=== PATIENT | female | born 1955 ===

== ENCOUNTER 2020-03-27 13:48 | Outpatient (REF) | payer BC, SELFPAY ==
[2020-03-27 16:34] LABS: MANUAL DIFF FLAG NO
[2020-03-27 16:38] LABS: Basophils Percent Auto 0.3 % (0-2); Eosinophils Absolute Auto 0.2 X10*3/uL (0.0-0.4); Hematocrit 39.7 % (37-47); Hemoglobin 12.8 g/dl (12.0-16.0); Imm Gran Abs Auto 0.03 X10*3/uL (0.00-0.03); Imm Gran Pct Auto 0.4 % (0.0-0.4); Lymphocytes Absolute Auto 2.3 X10*3/uL (1.2-4.9); Lymphocytes Percent Auto 28.8 % (20-40); Mean Corpuscular HGB Conc 32.2 g/dl (31.0-35.0); Mean Corpuscular Hemoglobin 29.6 pg (27.0-33.0); Mean Corpuscular Volume 91.9 fL (80-98); Mean Platelet Volume 9.7 fL (9.4-12.3); Monocytes Absolute Auto 0.7 X10*3/uL (0.1-1.2); Monocytes Percent Auto 8.9 % (2-11); Neutrophils Absolute Auto 4.7 X10*3/uL (2.0-8.3); Neutrophils Percent Auto 59.6 % (45-73); Platelet Count 296 X10*3/uL (160-400); Red Blood Count 4.32 X10*6/uL (4.20-5.50); Red Cell Distribution Width 12.8 % (11.0-16.0); White Blood Count 7.9 X10*3/uL (4.8-10.8)
[2020-03-27 16:55] LABS: Alanine Aminotransferase 40 U/L (0-31); Albumin Level 4.4 g/dL (3.5-5.0); Alkaline Phosphatase 95 U/L (39-117); Anion Gap 10 (12-20); Aspartate Amino Transferase 19 U/L (5-31); Bilirubin Total 0.6 mg/dL (0.0-1.0); Blood Urea Nitrogen 19 mg/dL (9-16); Calcium 8.8 mg/dL (8.4-10.2); Carbon Dioxide 32 mmol/L (22-29); Chloride 101 mmol/L (96-108); Cholesterol 210 mg/dL; Estimated Glomerular Filt Rate > 60; Glucose Fasting 104 mg/dL (60-99); HDL Cholesterol 48 mg/dL; LDL Cholesterol Calculated 125 mg/dl; Potassium 4.4 mmol/l (3.3-5.1); Sodium 139 mmol/L (135-145); Total Protein 7.3 g/dL (6.5-8.0); Triglycerides 186 mg/dL
[2020-03-27 17:16] LABS: Thyroid Stimulating Hormone 0.99 uIU/mL (0.32-4.0)
== END 2020-03-27 13:49 | disposition home or self-care (01) ==
LOC: HO.HMGCLDS 13:48
PROVIDERS: PCP Internal Medicine; Visit Provider Internal Medicine
DX: Z00.00 Encounter for general adult medical examination without abnormal findings (principal)
CPT/HCPCS: 36415; 80053; 80061; 84443; 85025

== ENCOUNTER 2021-04-15 13:24 | Outpatient (REF) | payer BC, SELFPAY ==
[2021-04-15 16:48] LABS: Hematocrit 38.4 % (37.0-47.0); Hemoglobin 12.3 g/dl (12.0-16.0); Mean Corpuscular Hemoglobin 29.3 pg (27.0-33.0); Mean Corpuscular Volume 91.4 fL (80.0-98.0); Mean Platelet Volume 10.1 fL (9.4-12.3); Platelet Count 286 X10*3/uL (160-400); Red Cell Distribution Width 12.5 % (11.0-16.0); White Blood Count 7.2 X10*3/uL (4.8-10.8)
[2021-04-15 17:03] LABS: Appearance Urine CLEAR; Color Urine YELLOW; Glucose Urine UA NEG (NEG); Leukocyte Esterase Urine NEG (NEG); Nitrite Urine NEG (NEG); Specific Gravity - Urine <= 1.005 (1.005-1.025); Urine Blood NEG (NEG); Urine Ketones NEG (NEG); Urine Protein NEG (NEG-TRACE)
[2021-04-15 17:12] LABS: Alanine Aminotransferase 20 U/L (0-31); Albumin Level 4.1 g/dL (3.5-5.0); Alkaline Phosphatase 92 U/L (39-117); Anion Gap 10 (12-20); Aspartate Amino Transferase 14 U/L (5-31); Bilirubin Total 0.4 mg/dL (0.0-1.0); Blood Urea Nitrogen 14 mg/dL (9-16); Calcium 9.7 mg/dL (8.4-10.2); Carbon Dioxide 30 mmol/L (22-29); Chloride 105 mmol/L (96-108); Cholesterol 196 mg/dL; Estimated Glomerular Filt Rate > 60; Glucose Fasting 98 mg/dL (60-99); HDL Cholesterol 44 mg/dL; LDL Cholesterol Calculated 93 mg/dl; Potassium 4.2 mmol/L (3.3-5.1); Sodium 141 mmol/L (135-145); Total Protein 7.2 g/dL (6.5-8.0); Triglycerides 297 mg/dL
[2021-04-15 17:25] LABS: TSH reflex Free T4 1.12 uIU/mL (0.32-4.0)
== END 2021-04-15 13:25 | disposition home or self-care (01) ==
LOC: HO.HMGCLDS 13:24
PROVIDERS: Absent Provider Nurse Practitioner Family; PCP Internal Medicine; Visit Provider Internal Medicine
DX: Z00.00 Encounter for general adult medical examination without abnormal findings (principal); R31.9 Hematuria, unspecified; M54.16 Radiculopathy, lumbar region
CPT/HCPCS: 36415; 80053; 80061; 81003; 84443; 85027

== ENCOUNTER 2022-01-17 14:31 | Outpatient (REF) | payer BC, SELFPAY ==
--- NOTE | ~2022-01-17 | XR_ITS ---
EXAMINATION: XR SHOULDER, LEFT CLINICAL INFORMATION: Pain in left shoulder COMPARISON: None TECHNIQUE: Three views of the left shoulder. FINDINGS: The bones and soft tissues are normal. No fracture. Glenohumeral and acromioclavicular alignment is anatomic with normal joint space. No abnormal soft tissue calcifications. XR/XR shoulder LT min 2V IMPRESSION: Normal left shoulder.
== END 2022-01-17 14:32 | disposition home or self-care (01) ==
LOC: HO.HMGCX 14:31
PROVIDERS: PCP Internal Medicine
DX: M25.512 Pain in left shoulder (principal)
CPT/HCPCS: 73030

== ENCOUNTER 2022-04-29 08:15 | Outpatient (REF) | payer BC, SELFPAY ==
--- NOTE | ~2022-04-29 | XR_ITS ---
EXAMINATION: XR SHOULDER, LEFT CLINICAL INFORMATION: Pain. COMPARISON: None. TECHNIQUE: AP external rotation, Grashey, scapular Y, and axillary views of the left shoulder. FINDINGS: There is loss of glenohumeral and AC joint space is normal. No visible acute fracture, dislocation or subluxation seen. There is an inferior left acromial enthesophyte. The soft tissues are normal. XR/XR shoulder LT min 2V IMPRESSION: Inferior left acromial enthesophyte. No visible acute fracture, dislocation or subluxation seen.
== END 2022-04-29 08:16 | disposition home or self-care (01) ==
LOC: HO.HOSX 08:15
PROVIDERS: Visit Provider Physician Assistant
DX: M75.102 Unspecified rotator cuff tear or rupture of left shoulder, not specified as traumatic (principal)
CPT/HCPCS: 73030

== ENCOUNTER 2022-11-06 13:38 | Outpatient (AMB) | payer BC, SELFPAY ==
[2022-11-06 13:40] VITALS: BP 126/78; PULSE 89; O2SAT 96; BMI 40.8
--- NOTE | 2022-11-06 13:40 | MHC.PC.OV ---
Vital Signs 11/06/22 13:40 Height 5 ft 2 in Weight 223 lb 4 oz BMI 40.8 BP 126/78 Blood Pressure Location Lt brachial Position Sitting Pulse 89 Pulse Source Pulse Oximeter Pulse Oximetry (%) 96 Oxygen Delivery Method Room Air Intake Visit Reasons: Back pain Allergies clarithromycin [From Biaxin] Allergy (Unknown, Verified 11/06/22 13:40) throat closing Sulfa (Sulfonamide Antibiotics) Allergy (Unknown, Verified 11/06/22 13:40) throat closing and rash sulfamethoxazole [From Bactrim] Allergy (Unknown, Verified 11/06/22 13:40) throat closing trimethoprim [From Bactrim] Allergy (Unknown, Verified 11/06/22 13:40) throat closing polyethylene glycol Allergy (Verified 11/06/22 13:40) blockes sinuses and breathing problem covid vaccine Allergy (Uncoded 02/11/22 11:48) Anaphylaxis Medication List - Last Reconciled 11/06/22 by Aicha Romero MD albuterol sulfate 1.25 mg (3 mL) inhalation QID PRN clonazepam 0.5 mg PO DAILY meloxicam 15 mg (2 x 7.5 mg) PO DAILY PRN zolpidem 10 mg PO BEDTIME PRN Tobacco use date assessed: 11/06/22 Fall risk assessment: No Falls in past year Last assessed Fall Risk: 11/06/22 Dental Screening Dental Screen Date: 11/06/22 Did you have a dental visit in the last 12 months?: Yes Did you have a dental problem in the last 6 months where you did not have access to dental care?: No Was dental information given to patient?: No HPI HPI Comments History of Present Illness Details Patient presents for f/u chronic lower back pain and has been taking meloxicam as needed. Patient has been gaining weight and is planning to try some weight loss. [facility] Medical History (Updated 11/06/22 @ 14:37 by Aicha Romero MD) Annual physical exam Anxiety Insomnia Jaw pain Left shoulder pain Lumbar radiculopathy Mammogram declined Pain of left shoulder joint on movement Surgical History History of appendectomy History of hip replacement Family History Father No problems noted. Mother Alcohol abuse Brother Healthy male adult Brother Healthy male adult Other Substance use disorder Social History Housing: House Alcohol intake: never Patient Tobacco Use Status: Former Tobacco user Quit Date: 2003 Tobacco use type: Cigarette Years Smoked: 5 years e-Cigarette/Vaping Use: Never Used service: Yes Current occupational status: retired Cognitive needs: No Hearing needs: No Vision needs: Yes Questionnaire Thrive Questionnaire Date Thrive assessed: 02/11/22 AUDIT C Alcohol Use Questionnaire (AUDIT-C) 1. How often do you have a drink containing alcohol?: Never 3. How often do you have six or more drinks on one occasion?: Never Total Score: 0 Score Reviewed/Action Taken: Yes DREW-7 AMB Questionnaire DREW-7 Date DREW - 7 assessed: 02/11/22 Source: Developed by Drs. Matthew Harmon, Shelby Kulkarni, Kennedy Rodriguez and colleagues, with an educational blossom from [employer]. Review of Systems Const All systems reviewed & are unremarkable except as noted in HPI and below Reports no additional complaints Eyes Reports no additional complaints ENT Reports no additional complaints Card Reports no additional complaints Resp Reports no additional complaints GI Reports no additional complaints Reports no additional complaints Physical exam (Primary Care) Vital Signs: Last Vital Signs Pulse 89 11/06/22 13:40 BP 126/78 11/06/22 13:40 Pulse Ox 96 11/06/22 13:40 Oxygen Delivery Method Room Air 11/06/22 13:40 BMI result Body Mass Index 40.8 Tobacco/Smoking Status: Tobacco use Status Tobacco use date assessed 11/06/22 11/06/22 13:44 Patient Tobacco Use Status Former Tobacco user 11/06/22 13:44 Tobacco use type Cigarette 11/06/22 13:44 e-Cigarette/Vaping Use Never Used 11/06/22 13:44 Thrive Assessment: Date of Thrive Assessment Date Thrive assessed 02/11/22 11/06/22 13:44 HENMT Mouth: Normal oral and palatal mucosa present Eyes General: appearance normal, both eyes and all related structures Neck Neck: Yes supple Resp Auscultation: clear to auscultation bilaterally Cardio Rhythm: regular rhythm Heart sounds: S1 normal heart sound present and S2 normal heart sound present GI Inspection: Yes normal to inspection Assessment and Plan Assessment & Plan (1) Annual physical exam: Code(s): Z00.00 - Encounter for general adult medical examination without abnormal findings (2) Hyperglycemia: Code(s): R73.9 - Hyperglycemia, unspecified Plan: check labs , ADA diet ,weight loss discussed (3) Mammogram declined: Comment: 03/04 Code(s): Z53.20 - Procedure and treatment not carried out because of patient's decision for unspecified reasons (4) Colonoscopy refused: Comment: 03/04 Code(s): Z53.20 - Procedure and treatment not carried out because of patient's decision for unspecified reasons (5) Hyperlipidemia: Comment: Patient refused to take medications Code(s): E78.5 - Hyperlipidemia, unspecified (6) Over weight: Code(s): E66.3 - Overweight Plan: weight loss discussed (7) Lumbar radiculopathy: Comment: managed by hydrotherapy and physical therapy, on Meloxicam prn Code(s): M54.16 - Radiculopathy, lumbar region Plan: cont Meloxicam prn Orders: Orders Comprehensive Met. Panel Today R73.9 - Hyperglycemia, unspecified, Z00.00 - Encounter for general adult medical examination without abnormal findings Complete Blood Count Auto Diff Today R73.9 - Hyperglycemia, unspecified, Z00.00 - Encounter for general adult medical examination without abnormal findings Lipid Panel Today R73.9 - Hyperglycemia, unspecified, Z00.00 - Encounter for general adult medical examination without abnormal findings TSH reflex Free T4 Today R73.9 - Hyperglycemia, unspecified, Z00.00 - Encounter for general adult medical examination without abnormal findings Hemoglobin A1c Today R73.9 - Hyperglycemia, unspecified, Z00.00 - Encounter for general adult medical examination without abnormal findings Medications: New meloxicam 15 mg PO DAILY 30 tabs 1RF amoxicillin 4tabl 1 hour before procedure 500 mg PO DAILY 12 tabs 1RF ciprofloxacin HCl 0.3% put 1-2 drps in affected eye(s) every 2hr up to 8 times/day x2days; then 4 times/day x5days ophthalmic (eye) 2.5 mL 0RF prednisone 2tabl qd x 4 days, then 1 tabl qd x 4 days 20 mg PO DAILY 12 tabs 0RF Discontinued meloxicam Discontinued Reason: Doctor's Order 15 mg (2 x 7.5 mg) PO DAILY PRN 20 tabs 0RF Left shoulder pain Coding Level of Care Code Est Pt Level 4 (18461) Diagnoses Annual physical exam Z00.00 Hyperglycemia R73.9 Mammogram declined Z53.20 Colonoscopy refused Z53.20 Hyperlipidemia E78.5 Over weight E66.3 Lumbar radiculopathy M54.16
== END 2022-11-06 14:41 | disposition home or self-care (01) ==
PROVIDERS: PCP Internal Medicine; Visit Provider Internal Medicine
DX: R73.9 Hyperglycemia, unspecified (principal); Z53.20 Procedure and treatment not carried out because of patient's decision for unspecified reasons; E66.01 Morbid (severe) obesity due to excess calories; Z68.41 Body mass index [BMI] 40.0-44.9, adult; E78.5 Hyperlipidemia, unspecified; M54.16 Radiculopathy, lumbar region
CPT/HCPCS: 99214

== ENCOUNTER 2022-11-06 14:28 | Outpatient (REF) | payer BC, SELFPAY ==
[2022-11-06 16:06] LABS: MANUAL DIFF FLAG NO
[2022-11-06 16:24] LABS: Basophils Percent Auto 0.4 % (0-2); Eosinophils Absolute Auto 0.1 X10*3/uL (0.0-0.4); Eosinophils Percent Auto 1.6 % (0-4); Hematocrit 39.2 % (37.0-47.0); Hemoglobin 12.6 g/dl (12.0-16.0); Imm Gran Abs Auto 0.01 X10*3/uL (0.00-0.03); Imm Gran Pct Auto 0.1 % (0.0-0.4); Lymphocytes Absolute Auto 1.8 X10*3/uL (1.2-4.9); Mean Corpuscular HGB Conc 32.1 g/dl (31.0-35.0); Mean Corpuscular Hemoglobin 29.2 pg (27.0-33.0); Mean Platelet Volume 10.1 fL (9.4-12.3); Monocytes Absolute Auto 0.6 X10*3/uL (0.1-1.2); Monocytes Percent Auto 8.3 % (2-11); Neutrophils Absolute Auto 4.3 x10*3/uL (2.0-8.3); Neutrophils Percent Auto 63.6 % (45-73); Platelet Count 303 X10*3/uL (160-400); Red Blood Count 4.31 X10*6/uL (4.20-5.50); Red Cell Distribution Width 12.3 % (11.0-16.0); White Blood Count 6.8 X10*3/uL (4.8-10.8)
[2022-11-06 17:06] LABS: Estimated Average Glucose 108 mg/dL; Hemoglobin A1c % 5.4 %
[2022-11-06 17:36] LABS: Alanine Aminotransferase 28 U/L (0-31); Albumin Level 4.2 g/dL (3.5-5.0); Alkaline Phosphatase 91 U/L (39-117); Anion Gap 17 (12-20); Aspartate Amino Transferase 19 U/L (5-31); Bilirubin Total 0.4 mg/dL (0.0-1.0); Blood Urea Nitrogen 17 mg/dL (9-16); Calcium 10.2 mg/dL (8.4-10.2); Carbon Dioxide 23 mmol/L (22-29); Chloride 103 mmol/L (96-108); Cholesterol 185 mg/dL; Estimated Glomerular Filt Rate > 60; Glucose Random 90 mg/dL (60-115); HDL Cholesterol 45 mg/dL; LDL Cholesterol Calculated 101 mg/dl; Potassium 4.3 mmol/L (3.3-5.1); Sodium 139 mmol/L (135-145); Total Protein 7.7 g/dL (6.5-8.0); Triglycerides 195 mg/dL
[2022-11-06 17:51] LABS: TSH reflex Free T4 1.16 uIU/mL (0.32-4.0)
== END 2022-11-06 14:29 | disposition home or self-care (01) ==
LOC: HO.HMGCLDS 14:28
PROVIDERS: PCP Internal Medicine; Visit Provider Internal Medicine
DX: Z00.00 Encounter for general adult medical examination without abnormal findings (principal); R73.9 Hyperglycemia, unspecified
CPT/HCPCS: 36415; 80053; 80061; 83036; 84443; 85025

== ENCOUNTER 2023-08-13 11:03 | Outpatient (AMB) | payer BC, SELFPAY ==
--- NOTE | 2023-08-13 11:10 | A.OFFPC_ITS ---
Vital Signs 08/13/23 11:11 Height 5 ft 2 in Weight 222 lb BMI 40.6 BP 116/74 Blood Pressure Location Lt brachial Position Sitting Pulse 79 Pulse Source Pulse Oximeter Pulse Oximetry (%) 96 Oxygen Delivery Method Room Air Intake Visit Reasons: Back Pain Intake Note: Pt is here today for a sick visit. Pt c/o lower back pain and watery itchy eyes. Allergies clarithromycin [From Biaxin] Allergy (Unknown, Verified 08/13/23 11:24) throat closing Sulfa (Sulfonamide Antibiotics) Allergy (Unknown, Verified 08/13/23 11:24) throat closing and rash sulfamethoxazole [From Bactrim] Allergy (Unknown, Verified 08/13/23 11:24) throat closing trimethoprim [From Bactrim] Allergy (Unknown, Verified 08/13/23 11:24) throat closing polyethylene glycol Allergy (Verified 08/13/23 11:24) blockes sinuses and breathing problem covid vaccine Allergy (Uncoded 08/13/23 11:24) Anaphylaxis Medication List - Last Reconciled 08/13/23 by Aicha Romero MD albuterol sulfate 1.25 mg (3 mL) inhalation QID PRN amoxicillin 500 mg PO DAILY ciprofloxacin HCl 0.3% put 1-2 drps in affected eye(s) every 2hr up to 8 times/day x2days; then 4 times/day x5days ophthalmic (eye) clonazepam 0.5 mg PO DAILY meloxicam 15 mg PO DAILY prednisone 20 mg PO DAILY Tobacco use date assessed: 08/13/23 Fall risk assessment: No Falls in past year Last assessed Fall Risk: 08/13/23 Dental Screening Dental Screen Date: 08/13/23 Did you have a dental visit in the last 12 months?: Yes Did you have a dental problem in the last 6 months where you did not have access to dental care?: No Was dental information given to patient?: Patient has dentist HPI Back Pain HPI Details Pt c/o LBP worse after stepped over the hole in the yard a few weeks ago. Patient denies pain radiating to lower extremities, change in bowel or bladder function. [facility] Medical History (Updated 11/06/22 @ 14:37 by Aicha Romero MD) Pain of left shoulder joint on movement Mammogram declined Left shoulder pain Jaw pain Annual physical exam Insomnia Anxiety Lumbar radiculopathy Surgical History History of appendectomy History of hip replacement Family History Father No problems noted. Mother Alcohol abuse Brother Healthy male adult Brother Healthy male adult Other Substance use disorder Social History Housing: House Alcohol intake: never Patient Tobacco Use Status: Former Tobacco user Quit Date: 2003 Tobacco use type: Cigarette Years Smoked: 5 years e-Cigarette/Vaping Use: Never Used service: Yes Current occupational status: retired Cognitive needs: No Hearing needs: No Vision needs: Yes Questionnaire PHQ-9 Over the last 2 weeks, how often have you been bothered by any of the following problems? 1. Little interest or pleasure in doing things: not at all 2. Feeling down, depressed, or hopeless: not at all 3. Trouble falling or staying asleep, or sleeping too much: several days 4. Feeling tired or having little energy: several days 5. Poor appetite or overeating: several days 6. Feeling bad about yourself - or that you are a failure or have let yourself or your family down: not at all 7. Trouble concentrating on things, such as reading the newspaper or watching television: not at all 8. Moving or speaking so slowly that other people could have noticed. Or the opposite - being so fidgety or restless that you have been moving around a lot more than usual: not at all 9. Thoughts that you would be better off or of hurting yourself in some way: not at all Total score: 3 Depression Screening Interpretation: Negative Depression Screening Done: Yes Source: Developed by Drs. Matthew Harmon, Shelby Kulkarni, Kennedy Rodriguez and colleagues, with an educational blossom from [employer]. Thrive Questionnaire Date Thrive assessed: 08/13/23 I am a: Patient What is your living situation today?: I have a steady place to live Within the past 12 months, did the food you bought not last and you didn't have the money to get more?: Never true Within the past 12 months, did you worry whether your food would run out before you got money to buy more?: Never true Do you have trouble paying for medicines?: No Do you have trouble getting transportation to medical appointments?: No Do you have trouble paying your heating and electricity bill?: Yes Do you have trouble taking care of your child, family member or friend?: No Do you have trouble with day-to-day activities such as bathing, preparing meals, shopping, managing finances, etc.?: No Are you currently unemployed and looking for a job?: No Are you interested in more education?: No THRIVE Score: 1 AUDIT C Alcohol Use Questionnaire (AUDIT-C) 1. How often do you have a drink containing alcohol?: Never 3. How often do you have six or more drinks on one occasion?: Never Total Score: 0 DREW-7 AMB Questionnaire DREW-7 Date DREW - 7 assessed: 08/13/23 Feeling nervous, anxious, or on edge: 0 = Not at all Not being able to stop or control worryin = Not at all Worrying too much about different things: 0 = Not at all Trouble relaxin = Several days Being so restless that it is hard to sit still: 0 = Not at all Becoming easily annoyed or irritable: 0 = Not at all Feeling afraid as if something awful might happen: 0 = Not at all Total DREW-7 score (0-4 normal; 5-9 mild; 10-14 moderate; 15-21 severe): 1 Source: Developed by Drs. Matthew Harmon, Shelby Kulkarni, Kennedy Rodriguez and colleagues, with an educational blossom from [employer]. Review of Systems Const All systems reviewed & are unremarkable except as noted in HPI and below ENT Reports no additional complaints Card Reports no additional complaints Resp Reports no additional complaints GI Reports no additional complaints Reports no additional complaints Physical exam (Primary Care) Vital Signs: Last Vital Signs Pulse 79 08/13/23 11:11 BP 116/74 08/13/23 11:11 Pulse Ox 96 08/13/23 11:11 Oxygen Delivery Method Room Air 08/13/23 11:11 BMI result Body Mass Index 40.6 Tobacco/Smoking Status: Tobacco use Status Tobacco use date assessed 08/13/23 08/13/23 11:27 Patient Tobacco Use Status Former Tobacco user 08/13/23 11:11 Tobacco use type Cigarette 08/13/23 11:11 e-Cigarette/Vaping Use Never Used 08/13/23 11:11 PHQ-9: PHQ-9 Score PHQ-9: Total score 3 08/13/23 11:27 Depression Screening Interpretation: Negative Thrive Assessment: Date of Thrive Assessment Date Thrive assessed 08/13/23 08/13/23 11:27 Const General: no acute distress HENMT Head: Yes normal to inspection Resp Effort & Inspection: normal respiratory effort Auscultation: clear to auscultation bilaterally Cardio Rhythm: regular rhythm Heart sounds: S1 normal heart sound present and S2 normal heart sound present GI Inspection: Yes normal to inspection Palpation (GI): Soft to palpation Percussion: Yes normal to percussion Back/Spine/Pelvis Other: Paraspinal tenderness left more than right, straight leg rising 90 degrees bilaterally Assessment and Plan Assessment & Plan (1) Lumbar radiculopathy: Comment: managed by hydrotherapy and physical therapy, on Meloxicam prn Code(s): M54.16 - Radiculopathy, lumbar region Plan: Prednisone taper is prescribed and patient will be referred to physical therapy Orders: Orders Complete Blood Count Auto Diff Today Comprehensive [place]. Panel Fast Today Lipid Panel Today TSH reflex Free T4 Today Vitamin D 25-OH Total Today Medications: Refilled ciprofloxacin HCl 0.3% put 1-2 drps in affected eye(s) every 2hr up to 8 times/day x2days; then 4 times/day x5days ophthalmic (eye) 2.5 mL 0RF prednisone 2tabl qd x 4 days, then 1 tabl qd x 4 days 20 mg PO DAILY 12 tabs 0RF Coding Level of Care Code Est Pt Level 3 (99249) Diagnoses Lumbar radiculopathy M54.16
[2023-08-13 11:11] VITALS: BP 116/74; PULSE 79; O2SAT 96; BMI 40.6
== END 2023-08-13 12:19 | disposition home or self-care (01) ==
PROVIDERS: PCP Internal Medicine; Visit Provider Internal Medicine
DX: M54.16 Radiculopathy, lumbar region (principal)
CPT/HCPCS: 99213

== ENCOUNTER 2023-11-04 13:44 | Outpatient (AMB) | payer BC, SELFPAY ==
[2023-11-04 14:13] VITALS: BP 104/66; PULSE 74; O2SAT 96; BMI 39.1
--- NOTE | 2023-11-04 14:13 | MHC.PC.OV ---
Vital Signs 11/04/23 14:13 Height 5 ft 2 in Weight 214 lb BMI 39.1 BP 104/66 Blood Pressure Location Lt brachial Position Sitting Pulse 74 Pulse Source Pulse Oximeter Pulse Oximetry (%) 96 Oxygen Delivery Method Room Air Intake Visit Reasons: Follow up Allergies clarithromycin [From Biaxin] Allergy (Unknown, Verified 11/04/23 14:15) throat closing Sulfa (Sulfonamide Antibiotics) Allergy (Unknown, Verified 11/04/23 14:15) throat closing and rash sulfamethoxazole [From Bactrim] Allergy (Unknown, Verified 11/04/23 14:15) throat closing trimethoprim [From Bactrim] Allergy (Unknown, Verified 11/04/23 14:15) throat closing polyethylene glycol Allergy (Verified 11/04/23 14:15) blockes sinuses and breathing problem covid vaccine Allergy (Uncoded 11/04/23 14:15) Anaphylaxis Medication List - Last Reconciled 11/04/23 by Aicha Romero MD albuterol sulfate 1.25 mg (3 mL) inhalation QID PRN amoxicillin 500 mg PO DAILY clonazepam 0.5 mg PO DAILY meloxicam 15 mg PO DAILY Tobacco use date assessed: 11/04/23 Dental Screening Dental Screen Date: 08/13/23 HPI Follow up HPI Details Pt presents for follow-up. Chronic lower back pain has been controlled meloxicam. Patient has been taking clonazepam regularly prescribed by neurologist for PTSD chronic anxiety. Patient's neurologist is retiring and she was given prescription with 4 refills including September prescription. Patient has a scheduled appointment with a new neurologist in March. [facility] Medical History (Updated 11/04/23 @ 14:54 by Aicha Romero MD) Pain of left shoulder joint on movement Mammogram declined Left shoulder pain Jaw pain Annual physical exam Insomnia Anxiety Lumbar radiculopathy Surgical History History of appendectomy History of hip replacement Family History Father No problems noted. Mother Alcohol abuse Brother Healthy male adult Brother Healthy male adult Other Substance use disorder Social History Housing: House Alcohol intake: never Patient Tobacco Use Status: Former Tobacco user Tobacco use type: Cigarette Years Smoked: 5 years e-Cigarette/Vaping Use: Never Used service: Yes Current occupational status: retired Cognitive needs: No Hearing needs: No Vision needs: Yes Questionnaire PHQ-9 Over the last 2 weeks, how often have you been bothered by any of the following problems? 1. Little interest or pleasure in doing things: not at all 2. Feeling down, depressed, or hopeless: not at all 3. Trouble falling or staying asleep, or sleeping too much: several days 4. Feeling tired or having little energy: several days 5. Poor appetite or overeating: several days 6. Feeling bad about yourself - or that you are a failure or have let yourself or your family down: not at all 7. Trouble concentrating on things, such as reading the newspaper or watching television: not at all 8. Moving or speaking so slowly that other people could have noticed. Or the opposite - being so fidgety or restless that you have been moving around a lot more than usual: not at all 9. Thoughts that you would be better off or of hurting yourself in some way: not at all Total score: 3 Depression Screening Interpretation: Negative Depression Screening Done: Yes Source: Developed by Drs. Matthew Harmon, Shelby Kulkarni, Kennedy Rodriguez and colleagues, with an educational blossom from [employer]. Thrive Questionnaire Date Thrive assessed: 11/04/23 I am a: Patient What is your living situation today?: I have a steady place to live Within the past 12 months, did the food you bought not last and you didn't have the money to get more?: Sometimes True Within the past 12 months, did you worry whether your food would run out before you got money to buy more?: Sometimes True Do you have trouble paying for medicines?: No Do you have trouble getting transportation to medical appointments?: No Do you have trouble paying your heating and electricity bill?: No Do you have trouble taking care of your child, family member or friend?: No Do you have trouble with day-to-day activities such as bathing, preparing meals, shopping, managing finances, etc.?: No Are you currently unemployed and looking for a job?: No Are you interested in more education?: No Please select the resources that you would like help with: Housing/Nursing Home Currently or been in a relationship where the following occur: No concerns reported THRIVE Score: 2 AUDIT C Alcohol Use Questionnaire (AUDIT-C) 1. How often do you have a drink containing alcohol?: Never 3. How often do you have six or more drinks on one occasion?: Never Total Score: 0 DREW-7 AMB Questionnaire DREW-7 Date DREW - 7 assessed: 11/04/23 Feeling nervous, anxious, or on edge: 1 = Several days Not being able to stop or control worryin = Several days Worrying too much about different things: 1 = Several days Trouble relaxin = Several days Being so restless that it is hard to sit still: 1 = Several days Becoming easily annoyed or irritable: 0 = Not at all Feeling afraid as if something awful might happen: 1 = Several days Total DREW-7 score (0-4 normal; 5-9 mild; 10-14 moderate; 15-21 severe): 6 Source: Developed by Drs. Matthew Harmon, Shelby Kulkarni, Kennedy Rodriguez and colleagues, with an educational blossom from [employer]. Review of Systems Const All systems reviewed & are unremarkable except as noted in HPI and below Eyes Reports no additional complaints ENT Reports no additional complaints Card Reports no additional complaints Resp Reports no additional complaints GI Reports no additional complaints Physical exam (Primary Care) Vital Signs: Last Vital Signs Pulse 74 11/04/23 14:13 BP 104/66 11/04/23 14:13 Pulse Ox 96 11/04/23 14:13 Oxygen Delivery Method Room Air 11/04/23 14:13 BMI result Body Mass Index 39.1 Tobacco/Smoking Status: Tobacco use Status Tobacco use date assessed 11/04/23 11/04/23 14:19 Patient Tobacco Use Status Former Tobacco user 11/04/23 14:19 Tobacco use type Cigarette 11/04/23 14:19 e-Cigarette/Vaping Use Never Used 11/04/23 14:19 PHQ-9: PHQ-9 Score PHQ-9: Total score 3 11/04/23 14:23 Depression Screening Interpretation: Negative Thrive Assessment: Date of Thrive Assessment Date Thrive assessed 11/04/23 11/04/23 14:19 Currently or been in a relationship where the following occur: No concerns reported Const General: no acute distress Eyes General: appearance normal, both eyes and all related structures Resp Effort & Inspection: normal respiratory effort Auscultation: clear to auscultation bilaterally Cardio Rhythm: regular rhythm Heart sounds: S1 normal heart sound present and S2 normal heart sound present Assessment and Plan Assessment & Plan (1) Anxiety: Code(s): F41.9 - Anxiety disorder, unspecified Plan: Stress management mindfulness and psychotherapy discussed with the patient. She requested a a refill for clonazepam when she runs out. She was advised to taper down clonazepam because of potential for addiction, tolerance and memory impairment in patients over 65 taking chronically benzodiazepines. She requested a referral to geriatric psychiatrist at [facility]. (2) Lumbar radiculopathy: Comment: managed by hydrotherapy and physical therapy, on Meloxicam prn Code(s): M54.16 - Radiculopathy, lumbar region Plan: Continue meloxicam as needed Orders: Referrals Geriatric Psychiatry Referral F41.9 - Anxiety disorder, unspecified Coding Level of Care Code Est Pt Level 3 (13786) Diagnoses Anxiety F41.9 Lumbar radiculopathy M54.16
== END 2023-11-04 14:58 | disposition home or self-care (01) ==
PROVIDERS: PCP Internal Medicine; Visit Provider Internal Medicine
DX: F41.9 Anxiety disorder, unspecified (principal); M54.16 Radiculopathy, lumbar region
CPT/HCPCS: 99213

== ENCOUNTER 2024-02-18 11:47 | Outpatient (AMB) | payer BC, SELFPAY ==
--- NOTE | 2024-02-18 11:49 | A.OFFPC_ITS ---
Vital Signs 02/18/24 11:50 Height 5 ft 2 in Weight 211 lb BMI 38.6 BP 96/66 Blood Pressure Location Lt brachial Position Sitting Pulse 70 Pulse Source Pulse Oximeter Pulse Oximetry (%) 94 Oxygen Delivery Method Room Air Intake Visit Reasons: Physical Exam Intake Note: Pt is here today for PE. Allergies clarithromycin [From Biaxin] Allergy (Unknown, Verified 02/18/24 11:53) throat closing Sulfa (Sulfonamide Antibiotics) Allergy (Unknown, Verified 02/18/24 11:53) throat closing and rash sulfamethoxazole [From Bactrim] Allergy (Unknown, Verified 02/18/24 11:53) throat closing trimethoprim [From Bactrim] Allergy (Unknown, Verified 02/18/24 11:53) throat closing polyethylene glycol Allergy (Verified 02/18/24 11:53) blockes sinuses and breathing problem covid vaccine Allergy (Uncoded 02/18/24 11:53) Anaphylaxis Medication List - Last Reconciled 02/18/24 by Aicha Romero MD albuterol sulfate 1.25 mg (3 mL) inhalation QID PRN amoxicillin 500 mg PO DAILY clonazepam (Klonopin) 0.5 mg PO DAILY meloxicam 15 mg PO DAILY zolpidem 10 mg PO BEDTIME PRN Tobacco use date assessed: 02/18/24 Fall risk assessment: No Falls in past year Last assessed Fall Risk: 02/18/24 Dental Screening Dental Screen Date: 08/13/23 HPI Physical Exam HPI Details Pt presents for PE. [facility] Medical History (Updated 02/18/24 @ 12:28 by Aicha Romero MD) Pain of left shoulder joint on movement Mammogram declined Left shoulder pain Jaw pain Annual physical exam Insomnia Anxiety Lumbar radiculopathy Surgical History History of appendectomy History of hip replacement Family History Father No problems noted. Mother Alcohol abuse Brother Healthy male adult Brother Healthy male adult Other Substance use disorder Social History Housing: House Alcohol intake: never Patient Tobacco Use Status: Former Tobacco user Tobacco use type: Cigarette Years Smoked: 5 years e-Cigarette/Vaping Use: Never Used service: Yes Current occupational status: retired Cognitive needs: No Hearing needs: No Vision needs: Yes Questionnaire Thrive Questionnaire Date Thrive assessed: 11/04/23 I am a: Patient What is your living situation today?: I have a steady place to live Within the past 12 months, did the food you bought not last and you didn't have the money to get more?: Sometimes True Within the past 12 months, did you worry whether your food would run out before you got money to buy more?: Sometimes True Do you have trouble paying for medicines?: No Do you have trouble getting transportation to medical appointments?: No Do you have trouble paying your heating and electricity bill?: No Do you have trouble taking care of your child, family member or friend?: No Do you have trouble with day-to-day activities such as bathing, preparing meals, shopping, managing finances, etc.?: No Are you currently unemployed and looking for a job?: No Are you interested in more education?: No Please select the resources that you would like help with: None Currently or been in a relationship where the following occur: No concerns reported THRIVE Score: 2 DREW-7 AMB Questionnaire DREW-7 Date DREW - 7 assessed: 11/04/23 Source: Developed by Drs. Matthew Harmon, Shelby Kulkarni, Kennedy Rodriguez and colleagues, with an educational blossom from [employer]. Review of Systems Const All systems reviewed & are unremarkable except as noted in HPI and below Eyes Reports no additional complaints ENT Reports no additional complaints Card Reports no additional complaints Resp Reports no additional complaints GI Reports no additional complaints Reports no additional complaints Neuro Reports no additional complaints Physical exam (Primary Care) Vital Signs: Last Vital Signs Pulse 70 02/18/24 11:50 BP 96/66 02/18/24 11:50 Pulse Ox 94 02/18/24 11:50 Oxygen Delivery Method Room Air 02/18/24 11:50 BMI result Body Mass Index 38.6 Tobacco/Smoking Status: Tobacco use Status Tobacco use date assessed 02/18/24 02/18/24 11:54 Patient Tobacco Use Status Former Tobacco user 02/18/24 11:51 Tobacco use type Cigarette 02/18/24 11:51 e-Cigarette/Vaping Use Never Used 02/18/24 11:51 Thrive Assessment: Date of Thrive Assessment Date Thrive assessed 11/04/23 02/18/24 11:51 Currently or been in a relationship where the following occur: No concerns reported Const General: no acute distress HENMT Head: Yes normal to inspection Face and sinus: Yes normal facial exam Mouth: Normal oral and palatal mucosa present Throat: Yes posterior oropharynx normal Eyes General: appearance normal, both eyes and all related structures Neck Neck: Yes no lymphadenopathy and Yes supple Resp Effort & Inspection: normal respiratory effort Auscultation: clear to auscultation bilaterally Cardio Rhythm: regular rhythm Heart sounds: S1 normal heart sound present and S2 normal heart sound present GI Inspection: Yes normal to inspection Palpation (GI): Soft to palpation Percussion: Yes normal to percussion Auscultation: normal bowel sounds Coding Level of Care Code Est Pt Prev Care >65y(73629) Diagnoses Anxiety F41.9 Annual physical exam Z00.00 Hyperlipidemia E78.5 Hyperglycemia R73.9 Colonoscopy refused Z Mammogram declined Z Assessment & Plan Assessment & Plan (1) Anxiety: Comment: Established with the Psychiatry Code(s): F41.9 - Anxiety disorder, unspecified Category: Medical Plan: Follow-up with anxiety she has been tapering down Klonopin and taking zolpidem as needed only for insomnia prescribed by psychiatrist. (2) Annual physical exam: Code(s): Z00.00 - Encounter for general adult medical examination without abnormal findings Category: Medical Plan: Well-balanced diet regular exercise weight loss discussed with the patient she had refused mammogram colonoscopy . (3) Hyperlipidemia: Comment: Patient refused to take medications Code(s): E78.5 - Hyperlipidemia, unspecified Category: Medical Plan: Continue low-cholesterol diet (4) Hyperglycemia: Code(s): R73.9 - Hyperglycemia, unspecified Category: Medical Plan: Continue ADA diet check A1c (5) Colonoscopy refused: Comment: 03/04 Code(s): Z53.20 - Procedure and treatment not carried out because of patient's decision for unspecified reasons Category: Medical Plan: 03/06 (6) Mammogram declined: Comment: 03/04 Code(s): Z53.20 - Procedure and treatment not carried out because of patient's decision for unspecified reasons Category: Medical Plan: 03/06 Orders: Orders Lipid Panel Today E78.5 - Hyperlipidemia, unspecified, F41.9 - Anxiety disorder, unspecified, R73.9 - Hyperglycemia, unspecified, Z00.00 - Encounter for general adult medical examination without abnormal findings TSH reflex Free T4 Today E78.5 - Hyperlipidemia, unspecified, F41.9 - Anxiety disorder, unspecified, R73.9 - Hyperglycemia, unspecified, Z00.00 - Encounter for general adult medical examination without abnormal findings Hemoglobin A1c Today R73.9 - Hyperglycemia, unspecified, Z53.20 - Procedure and treatment not carried out because of patient's decision for unspecified reasons Comprehensive Hines. Panel Fast Today E78.5 - Hyperlipidemia, unspecified, F41.9 - Anxiety disorder, unspecified, R73.9 - Hyperglycemia, unspecified, Z00.00 - Encounter for general adult medical examination without abnormal findings Complete Blood Count Auto Diff Today E78.5 - Hyperlipidemia, unspecified, F41.9 - Anxiety disorder, unspecified, R73.9 - Hyperglycemia, unspecified, Z00.00 - Encounter for general adult medical examination without abnormal findings Medications: New 2 prednisone Four tablets p.o. q.d. for 3 days then 3 tablets p.o. q.d. for 3 days then 2 tablets p.o. q.d. for 3 days then 1 tablet p.o. q.d. 10 mg PO DAILY 30 tabs 0RF Refilled amoxicillin 4tabl 1 hour before procedure 500 mg PO DAILY 4 tabs 1RF
[2024-02-18 11:50] VITALS: BP 96/66; PULSE 70; O2SAT 94; BMI 38.6
== END 2024-02-18 12:35 | disposition home or self-care (01) ==
LOC: HO.HMCC 11:47
PROVIDERS: PCP Internal Medicine; Visit Provider Internal Medicine
DX: F41.9 Anxiety disorder, unspecified (principal); Z00.00 Encounter for general adult medical examination without abnormal findings; E78.5 Hyperlipidemia, unspecified; R73.9 Hyperglycemia, unspecified; Z53.20 Procedure and treatment not carried out because of patient's decision for unspecified reasons

== ENCOUNTER 2024-02-18 11:47 | Outpatient (REF) | payer BC, SELFPAY ==
[2024-02-18 16:08] LABS: MANUAL DIFF FLAG NO
[2024-02-18 16:18] LABS: Basophils Percent Auto 0.5 % (0-2); Eosinophils Absolute Auto 0.1 X10*3/uL (0.0-0.4); Eosinophils Percent Auto 1.5 % (0-4); Hematocrit 38.9 % (37.0-47.0); Hemoglobin 12.8 g/dl (12.0-16.0); Imm Gran Abs Auto 0.01 X10*3/uL (0.00-0.03); Imm Gran Pct Auto 0.2 % (0.0-0.4); Lymphocytes Absolute Auto 1.7 X10*3/uL (1.2-4.9); Lymphocytes Percent Auto 25.7 % (20-40); Mean Corpuscular HGB Conc 32.9 g/dl (31.0-35.0); Mean Corpuscular Hemoglobin 29.6 pg (27.0-33.0); Mean Corpuscular Volume 89.8 fL (80.0-98.0); Mean Platelet Volume 9.8 fL (9.4-12.3); Monocytes Absolute Auto 0.5 X10*3/uL (0.1-1.2); Monocytes Percent Auto 7.7 % (2-11); Neutrophils Absolute Auto 4.3 x10*3/uL (2.0-8.3); Neutrophils Percent Auto 64.4 % (45-73); Platelet Count 309 X10*3/uL (160-400); Red Blood Count 4.33 X10*6/uL (4.20-5.50); Red Cell Distribution Width 13.1 % (11.0-16.0); White Blood Count 6.6 X10*3/uL (4.8-10.8)
[2024-02-18 16:32] LABS: Estimated Average Glucose 114 mg/dL; Hemoglobin A1C 130.1138 umol/L; Hemoglobin A1c % 5.6 % (<6.0); Total Hemoglobin (HGBA1C) 3422.9475 umol/L
[2024-02-18 17:03] LABS: Alanine Aminotransferase 28 U/L (0-31); Albumin Level 4.2 g/dL (3.5-5.0); Alkaline Phosphatase 84 U/L (39-117); Anion Gap 12 (12-20); Aspartate Amino Transferase 23 U/L (5-31); Bilirubin Total 0.5 mg/dL (0.0-1.0); Blood Urea Nitrogen 15 mg/dL (9-16); Calcium 9.8 mg/dL (8.4-10.2); Carbon Dioxide 27 mmol/L (22-29); Chloride 105 mmol/L (96-108); Cholesterol 183 mg/dL (<200); Estimated Glomerular Filt Rate > 60; Glucose Fasting 94 mg/dL (60-99); HDL Cholesterol 49 mg/dL (>40); LDL Cholesterol Calculated 99 mg/dL (<100); Sodium 140 mmol/L (135-145); Total Protein 7.5 g/dL (6.5-8.0); Triglycerides 178 mg/dL (<150)
[2024-02-18 17:19] LABS: TSH reflex Free T4 0.92 uIU/mL (0.32-4.0)
== END 2024-02-18 11:48 | disposition home or self-care (01) ==
LOC: HO.HMGCLDS 11:47
PROVIDERS: PCP Internal Medicine; Visit Provider Internal Medicine
DX: Z00.00 Encounter for general adult medical examination without abnormal findings (principal); R73.9 Hyperglycemia, unspecified; E78.5 Hyperlipidemia, unspecified; F41.9 Anxiety disorder, unspecified; Z53.20 Procedure and treatment not carried out because of patient's decision for unspecified reasons
CPT/HCPCS: 36415; 80053; 80061; 83036; 84443; 85025

== ENCOUNTER 2024-10-27 10:24 | Outpatient (AMB) | payer BC, SELFPAY ==
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
--- NOTE | 2024-10-27 10:41 | MHC.PC.OV ---
Vital Signs 10/27/24 10:46 Height 5 ft 2 in Weight 206 lb BMI 37.7 BP 118/80 Blood Pressure Location Lt brachial Position Sitting Respiration 18 Pulse 77 Pulse Source Pulse Oximeter Temp 98.3 F Temp Source Oral Pulse Oximetry (%) 96 Oxygen Delivery Method Room Air Intake Visit Reasons: Epilepsy Referral Intake Note: Pt is here today for a follow up to discuss referral to Neurology. Allergies clarithromycin (From Biaxin) Allergy (Unknown, Verified 10/27/24 10:57) throat closing Sulfa (Sulfonamide Antibiotics) Allergy (Unknown, Verified 10/27/24 10:57) throat closing and rash sulfamethoxazole (From Bactrim) Allergy (Unknown, Verified 10/27/24 10:57) throat closing trimethoprim (From Bactrim) Allergy (Unknown, Verified 10/27/24 10:57) throat closing polyethylene glycol Allergy (Verified 10/27/24 10:57) blockes sinuses and breathing problem covid vaccine Allergy (Uncoded 10/27/24 10:57) Anaphylaxis Tobacco use date assessed: 10/27/24 Fall risk assessment: No Falls in past year Last assessed Fall Risk: 10/27/24 Dental Screening Dental Screen Date: 10/27/24 Did you have a dental visit in the last 12 months?: Yes Did you have a dental problem in the last 6 months where you did not have access to dental care?: No Was dental information given to patient?: Patient has dentist HPI Epilepsy Referral HPI Details Patient presents for the follow-up. She needs a referral to a new neurologist (Epilepsy clinic in [place]) because her previous neurologist retired. She has been prescribed brand-name Klonopin for the last 30 years for ? nonepileptic seizure. 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 Patient has not had any seizure episodes and her EEG and brain MRI according to the most recent neurologist's note from 2022 were unremarkable. 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 Mother Alcohol abuse Brother Healthy male adult Brother Healthy male adult Other Substance use disorder Social History Housing: House Alcohol intake: never Patient Tobacco Use Status: Former Tobacco user Tobacco use type: Cigarette Years Smoked: 5 years e-Cigarette/Vaping Use: Never Used service: Yes Current occupational status: retired Cognitive needs: No Hearing needs: No Vision needs: Yes Questionnaire PHQ-9 Over the last 2 weeks, how often have you been bothered by any of the following problems? 1. Little interest or pleasure in doing things: not at all 2. Feeling down, depressed, or hopeless: not at all 3. Trouble falling or staying asleep, or sleeping too much: several days 4. Feeling tired or having little energy: several days 5. Poor appetite or overeating: several days 6. Feeling bad about yourself - or that you are a failure or have let yourself or your family down: not at all 7. Trouble concentrating on things, such as reading the newspaper or watching television: not at all 8. Moving or speaking so slowly that other people could have noticed. Or the opposite - being so fidgety or restless that you have been moving around a lot more than usual: not at all 9. Thoughts that you would be better off or of hurting yourself in some way: not at all Total score: 3 Depression Screening Interpretation: Negative Depression Screening Done: Yes 63309 - PHQ-9 Billing: Yes Source: Developed by Drs. Matthew Harmon, Shelby Kulkanri, Kennedy Rodriguez and colleagues, with an educational blossom from [employer]. Thrive Questionnaire Date Thrive assessed: 10/27/24 I am a: Patient What is your living situation today?: I have a steady place to live Within the past 12 months, did the food you bought not last and you didn't have the money to get more?: Sometimes True Within the past 12 months, did you worry whether your food would run out before you got money to buy more?: Never true Do you have trouble paying for medicines?: No Do you have trouble getting transportation to medical appointments?: No Do you have trouble paying your heating and electricity bill?: Yes Do you have trouble taking care of your child, family member or friend?: No Do you have trouble with day-to-day activities such as bathing, preparing meals, shopping, managing finances, etc.?: No Are you currently unemployed and looking for a job?: No Are you interested in more education?: No Please select the resources that you would like help with: None Currently or been in a relationship where the following occur: No concerns reported THRIVE Score: 2 AUDIT C Alcohol Use Questionnaire (AUDIT-C) 1. How often do you have a drink containing alcohol?: Never 3. How often do you have six or more drinks on one occasion?: Never Total Score: 0 DREW-7 AMB Questionnaire DREW-7 Date DREW - 7 assessed: 10/27/24 Feeling nervous, anxious, or on edge: 1 = Several days Not being able to stop or control worryin = Several days Worrying too much about different things: 0 = Not at all Trouble relaxin = Several days Being so restless that it is hard to sit still: 0 = Not at all Becoming easily annoyed or irritable: 1 = Several days Feeling afraid as if something awful might happen: 1 = Several days Total DREW-7 score (0-4 normal; 5-9 mild; 10-14 moderate; 15-21 severe): 5 Source: Developed by Drs. Matthew Harmon, Shelby Kulkarni, Kennedy Rodriguez and colleagues, with an educational blossom from [employer]. DREW-7 Assessment Billing DREW-7 Assessment Tool: DREW-7 Assessment 67398 Review of Systems Const All systems reviewed & are unremarkable except as noted in HPI and below Eyes Reports no additional complaints ENT Reports no additional complaints Card Reports no additional complaints Resp Reports no additional complaints GI Reports no additional complaints Reports no additional complaints Physical exam (Primary Care) Vital Signs: Last Vital Signs Temp 98.3 F 10/27/24 10:46 Pulse 77 10/27/24 10:46 Resp 18 10/27/24 10:46 BP 118/80 10/27/24 10:46 Pulse Ox 96 10/27/24 10:46 Oxygen Delivery Method Room Air 10/27/24 10:46 BMI result Body Mass Index 37.7 Tobacco/Smoking Status: Tobacco use Status Tobacco use date assessed 10/27/24 10/27/24 10:59 Patient Tobacco Use Status Former Tobacco user 10/27/24 10:42 Tobacco use type Cigarette 10/27/24 10:42 e-Cigarette/Vaping Use Never Used 10/27/24 10:42 PHQ-9: PHQ-9 Score PHQ-9: Total score 3 10/27/24 10:59 Depression Screening Interpretation: Negative Thrive Assessment: Date of Thrive Assessment Date Thrive assessed 10/27/24 10/27/24 10:59 Currently or been in a relationship where the following occur: No concerns reported Const General: no acute distress HENMT Head: Yes normal to inspection Mouth: Normal oral and palatal mucosa present Neck Neck: Yes supple Resp Effort & Inspection: normal respiratory effort Auscultation: clear to auscultation bilaterally Cardio Rhythm: regular rhythm Heart sounds: S1 normal heart sound present and S2 normal heart sound present GI Inspection: Yes normal to inspection Percussion: Yes normal to percussion Coding Level of Care Code Est Pt Level 3 (17165) Diagnoses [place]-Gastaut syndrome with tonic seizures G40.812 Additional Codes DREW-7 Assessment Billing - DREW-7 Assessment Tool: DREW-7 Assessment 75396 ([id number]) PHQ-9 - 92627 - PHQ-9 Billing: Yes ([id number]) Assessment & Plan Assessment & Plan (1) Shaka-Gastaut syndrome with tonic seizures: Comment: treated with Klonopin by neurology Dr. Pardo Code(s): G40.812 - Shaka-Gastaut syndrome, not intractable, without status epilepticus Category: Medical Plan: Referral placed in the chart. Patient will obtain her old records from neurologist at [place] Orders: Referrals Neurology Referral G40.812 - [place]-Gastaut syndrome, not intractable, without status epilepticus
[2024-10-27 10:46] VITALS: BP 118/80; PULSE 77; RESP 18; TEMP 36.8; O2SAT 96; BMI 37.7
--- OUTSIDE RECORDS SUMMARY | 2024-10-27 10:56 | XMS_ITS ---
Author Name [facility] Organization Unknown History of Medication Use Medication Directions Dispensed Refills Start Date End Date Stat us zolpidem (AMBIEN) 10 MG tablet Take 1 tablet (10 mg total) by mouth every night at bedtime. 08/22/2009 01/22/2024 aborted clonazePAM (KlonoPIN) 0.5 MG tablet Take 1 tablet (0.5 mg total) by mouth daily. 08/22/2009 active Allergies Allergen Reaction Severity Comment Documented Date Source Statu s SULFAMETHOXAZOLE-TRIMETH OPRIM SWELLING 12/06/2018 [facility] active IODINATED CONTRAST MEDIA ANAPHYLAXIS 01/07/2004 [facility] active CODEINE RASH [facility] Problems Problem Status Onset Date Problem Type Date of Resolution Source Anxiety active EncounterDiagnosisAct [facility] Migraine headache active EncounterDiagnosisAct [facility] Panic attack active EncounterDiagnosisAct [facility] Insomnia, unspecified type active EncounterDiagnosisAct [place] [facility]NEMG History of psychogenic nonepileptic seizure active EncounterDiagnosisAct [facility]NE MG
--- OUTSIDE RECORDS SUMMARY | 2024-10-27 10:56 | XMS_ITS | Clinical Summary ---
Author Organization [facility] Address [address] [place] [address] Care Team Providers Care Fusing Furnace Loader Name Role Phone Unavailable Primary Care Provider Unavailabl e Allergies Active Allergy Reactions Criticality Noted Date Comments Codeine Rash Low 01/07/2004 Iodinated Contrast Media Anaphylaxis High 01/07/2004 Sulfamethoxazole-Trimethop rim Other (See Comments),Swelling 12/06/2018 Medications Medication Sig Dispensed Refills Start Date End Date Status clonazePAM (KlonoPIN) 0.5 MG tablet Take 1 tablet (0.5 mg total) by mouth daily. 0 08/22/2009 Active Social History Tobacco Use Types Packs/Day Years Used Date Smoking Tobacco: Never Assessed Sex and Gender Information Value Date Recorded Sex Assigned at Female 01/12/2024 2:29 PM EDT Gender Identity Not on file Sexual Orientation Not on file Job Start Date Occupation Industry Not on file Not on file Not on file Last Filed Vital Signs Vital Sign Reading Time Taken Comments Blood Pressure 134/86 01/22/2024 1:02 PM EDT Pulse 81 01/22/2024 1:02 PM EDT Temperature - - Respiratory Rate - - Oxygen Saturation - - Inhaled Oxygen Concentration - - Weight 97.5 kg (215 lb) 01/22/2024 1:02 PM EDT Height 165.1 cm (5' 5 ) 01/22/2024 1:02 PM EDT Body Mass Index 35.78 01/22/2024 1:02 PM EDT Plan of Treatment Health Maintenance Due Date Last Done Comments Hepatitis C Screening 1955 COVID-19 Vaccine (#1) 1954 Depression Screening 1966 Preventative Health Evaluation 1972 DTap / Tdap / Td (1 - Tdap) 1973 Colon Cancer Screening (Colonoscopy) 1999 Breast Cancer Screening (Mammogram) 2004 Shingrix-Zoster Vaccine (1 of 2) 2004 Fall Risk Assessment 2019 Osteoporosis Screening (DEXA Scan) 2019 Pneumococcal Vaccine (1 of 1 - PCV) 2019 Influenza Vaccine (#1) 2024 RSV Adult > 60+ Yrs or Pregn ant (1 - 1-dose 75+ series) 2029 Hepatitis B Vaccines Aged Out No long er eligible based on patient's age to complete this topic RSV Ped < 20 months Aged Out No longe r eligible based on patient's age to complete this topic
== END 2024-10-27 12:04 | disposition home or self-care (01) ==
LOC: HO.HMCC 10:25
PROVIDERS: PCP Internal Medicine; Visit Provider Internal Medicine
DX: G40.812 Lennox-Gastaut syndrome, not intractable, without status epilepticus (principal)

== ENCOUNTER → 2024-10-27 10:24 | Outpatient (BNVA) | payer BC, SELFPAY | PROVIDERS: PCP Internal Medicine; Visit Provider Internal Medicine | DX: G40.812 Lennox-Gastaut syndrome, not intractable, without status epilepticus (principal); Z13.31 Encounter for screening for depression; Z13.39 Encounter for screening examination for other mental health and behavioral disorders | CPT/HCPCS: 96127 ==

== ENCOUNTER 2025-03-15 11:09 | Outpatient (AMB) | payer BC, SELFPAY ==
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
[2025-03-15 11:12] VITALS: BP 110/66; PULSE 72; RESP 17; TEMP 36.5; O2SAT 97; BMI 38.0
--- NOTE | 2025-03-15 11:12 | A.OFFPC_ITS ---
Vital Signs 03/15/25 11:12 Height 5 ft 2 in Weight 208 lb BMI 38.0 BP 110/66 Blood Pressure Location Rt brachial Position Sitting Respiration 17 Pulse 72 Pulse Source Pulse Oximeter Temp 97.7 F Temp Source Oral Pulse Oximetry (%) 97 Oxygen Delivery Method Room Air Intake Visit Reasons: PE Intake Note: Pt is here today for PE. Allergies clarithromycin (From Biaxin) Allergy (Unknown, Verified 03/15/25 11:14) throat closing Sulfa (Sulfonamide Antibiotics) Allergy (Unknown, Verified 03/15/25 11:14) throat closing and rash sulfamethoxazole (From Bactrim) Allergy (Unknown, Verified 03/15/25 11:14) throat closing trimethoprim (From Bactrim) Allergy (Unknown, Verified 03/15/25 11:14) throat closing polyethylene glycol Allergy (Verified 03/15/25 11:14) blockes sinuses and breathing problem covid vaccine Allergy (Uncoded 03/15/25 11:14) Anaphylaxis Medication List - Last Reconciled 03/15/25 by Aicha Romero MD albuterol sulfate 1.25 mg (3 mL) inhalation QID PRN clonazepam (Klonopin) 0.5 mg PO DAILY prednisone 10 mg PO DAILY tobramycin 0.3% 2 drps ophthalmic (eye) Q4H zolpidem 10 mg PO BEDTIME PRN Tobacco use date assessed: 03/15/25 Fall risk assessment: 2 + Falls in past year Last assessed Fall Risk: 03/15/25 Dental Screening Dental Screen Date: 10/27/24 HPI PE HPI Details Patient presents for physical. She complains of chronic lower back pain occasionally radiating to both lower extremities, worse after physical activity like bending down or lifting. She denies weakness or numbness in lower extremities change in bowel bladder function. [facility] Medical History Shaka-Gastaut syndrome with tonic seizures Pain of left shoulder joint on movement Mammogram declined Left shoulder pain Jaw pain Annual physical exam Insomnia Anxiety Lumbar radiculopathy Surgical History History of appendectomy History of hip replacement Family History Father No problems noted. Mother Alcohol abuse Brother Healthy male adult Brother Healthy male adult Other Substance use disorder Social History Housing: House Alcohol intake: never Patient Tobacco Use Status: Former Tobacco user Tobacco use type: Cigarette Years Smoked: 5 years e-Cigarette/Vaping Use: Never Used service: Yes Current occupational status: retired Cognitive needs: No Hearing needs: No Vision needs: Yes Questionnaire Thrive Questionnaire Date Thrive assessed: 10/26/24 I am a: Patient What is your living situation today?: I have a steady place to live Within the past 12 months, did the food you bought not last and you didn't have the money to get more?: Sometimes True Within the past 12 months, did you worry whether your food would run out before you got money to buy more?: Never true Do you have trouble paying for medicines?: No Do you have trouble getting transportation to medical appointments?: No Do you have trouble paying your heating and electricity bill?: Yes Do you have trouble taking care of your child, family member or friend?: No Do you have trouble with day-to-day activities such as bathing, preparing meals, shopping, managing finances, etc.?: No Are you currently unemployed and looking for a job?: No Are you interested in more education?: No Please select the resources that you would like help with: None Currently or been in a relationship where the following occur: No concerns re ported THRIVE Score: 2 DREW-7 AMB Questionnaire DREW-7 Date DREW - 7 assessed: 10/27/24 Source: Developed by Drs. Matthew Harmon, Shelby Kulkarni, Kennedy Rodriguez and colleagues, with an educational blossom from [employer]. Review of Systems Const All systems reviewed & are unremarkable except as noted in HPI and below Eyes Reports no additional complaints ENT Reports no additional complaints Card Reports no additional complaints Resp Reports no additional complaints GI Reports no additional complaints Reports no additional complaints Physical exam (Primary Care) Vital Signs: Last Vital Signs Temp 97.7 F 03/15/25 11:12 Pulse 72 03/15/25 11:12 Resp 17 03/15/25 11:12 BP 110/66 03/15/25 11:12 Pulse Ox 97 12/03/25 11:12 Oxygen Delivery Method Room Air 03/15/25 11:12 BMI result Body Mass Index 38.0 Tobacco/Smoking Status: Tobacco use Status Tobacco use date assessed 03/15/25 03/15/25 11:18 Patient Tobacco Use Status Former Tobacco user 03/15/25 11:18 Tobacco use type Cigarette 03/15/25 11:18 e-Cigarette/Vaping Use Never Used 03/15/25 11:18 Thrive Assessment: Date of Thrive Assessment Date Thrive assessed 10/26/24 03/15/25 11:18 Currently or been in a relationship where the following occur: No concerns reported Const General: no acute distress HENMT Head: Yes normal to inspection Ears: TM's normal bilaterally Throat: Yes posterior oropharynx normal Eyes General: appearance normal, both eyes and all related structures Neck Neck: Yes no lymphadenopathy and Yes supple Resp Effort & Inspection: normal respiratory effort Auscultation: clear to auscultation bilaterally Cardio Rhythm: regular rhythm Heart sounds: S1 normal heart sound present and S2 normal heart sound present GI Inspection: Yes normal to inspection Palpation (GI): Soft to palpation Percussion: Yes normal to percussion Auscultation: normal bowel sounds Back/Spine/Pelvis Other: Decreasing motion lumbar spine, straight leg rising 90 degrees bilaterally. Deep tendon reflexes 2+ bilaterally, strength is 5/5 bilaterally Coding Level of Care Code Est Pt Prev Care >65y(76366) Diagnoses Hyperlipidemia E78.5 Annual physical exam Z00.00 Lumbar radiculopathy M54.16 Assessment & Plan Assessment & Plan (1) Hyperlipidemia: Comment: Patient refused to take medications Code(s): E78.5 - Hyperlipidemia, unspecified Category: Medical Plan: Continue low-cholesterol diet check fasting blood work today (2) Annual physical exam: Comment: Patient declined mammogram colonoscopy Cologuard Code(s): Z00.00 - Encounter for general adult medical examination without abnormal findings Category: Medical Plan: Well-balanced diet regular physical activity weight loss discussed with the patient (3) Lumbar radiculopathy: Comment: managed by hydrotherapy and physical therapy, on Meloxicam prn Code(s): M54.16 - Radiculopathy, lumbar region Category: Medical Plan: Referred to physical therapy weight loss and regular physical activity discussed with the patient Orders: Orders Complete Blood Count Auto Diff Today E78.5 - Hyperlipidemia, unspecified, R73.9 - Hyperglycemia, unspecified, Z00.00 - Encounter for general adult medical examination without abnormal findings Comprehensive [place]. Panel Fast 1 Year E78.5 - Hyperlipidemia, unspecified, R73.9 - Hyperglycemia, unspecified, Z00.00 - Encounter for general adult medical examination without abnormal findings Lipid Panel 1 Year E78.5 - Hyperlipidemia, unspecified, R73.9 - Hyperglycemia, unspecified, Z00.00 - Encounter for general adult medical examination without abnormal findings Comprehensive [place]. Panel Fast Today E78.5 - Hyperlipidemia, unspecified, R73.9 - Hyperglycemia, unspecified, Z00.00 - Encounter for general adult medical examination without abnormal findings Lipid Panel Today E78.5 - Hyperlipidemia, unspecified, R73.9 - Hyperglycemia, unspecified, Z00.00 - Encounter for general adult medical examination without abnormal findings TSH reflex Free T4 Today E78.5 - Hyperlipidemia, unspecified, R73.9 - Hyperglycemia, unspecified, Z00.00 - Encounter for general adult medical examination without abnormal findings Vitamin D 25-OH Total Today E78.5 - Hyperlipidemia, unspecified, R73.9 - Hyperglycemia, unspecified, Z00.00 - Encounter for general adult medical examination without abnormal findings PT Evaluation and Treatment Today M54.16 - Radiculopathy, lumbar region Complete Blood Count Auto Diff 1 Year E78.5 - Hyperlipidemia, unspecified, R73.9 - Hyperglycemia, unspecified, Z00.00 - Encounter for general adult medical examination without abnormal findings TSH reflex Free T4 1 Year E78.5 - Hyperlipidemia, unspecified, R73.9 - Hyperglycemia, unspecified, Z00.00 - Encounter for general adult medical examination without abnormal findings Medications: New tobramycin 0.3% 2 drps ophthalmic (eye) Q4H 5 mL 0RF prednisone 4 tabl qd for 3 days, then 3 tabl for 3 days, 2 tabl x 3 days, then 1 tabl x 3 days 10 mg PO DAILY 30 tabs 0RF
--- OUTSIDE RECORDS SUMMARY | 2025-03-15 13:21 | XMS_ITS | Clinical Summary ---
Author Organization [facility] Address [address] [place] [address] Phone Care Team Providers Care Paper Feeder Name Role Phone Aicha Romero MD Primary Care Provider [phone] Allergies Active Allergy Reactions Criticality Noted Date Comments Clarithromycin Anaphylaxis,Hives,Sw ellin g High 12/06/2018 Iodinated Contrast Media Anaphylaxis High 01/26/2024 Sulfamethoxazole-Trimethopri m Other,Swelling,Anaphylaxi s,Respiratory Issues High 12/06/2018 Medications zolpidem (AMBIEN) 10 mg tablet Take 1 tablet (10 mg total) by mouth at bedtime as needed for sleep. Max Daily Amount: 10 mg 08/27/2024 Active KlonoPIN 0.5 mg tablet Take 1 tablet (0.5 mg total) by mouth at bedtime. Max Daily Amount: 0.5 mg 30 each 10/26/2024 Active Social History Tobacco Use Types Packs/Day Years Used Date Smoking Tobacco: Never Assessed Comments Unknown Sex and Gender Information Value Date Recorded Sex Assigned at Not on file Legal Sex Female 5:53 AM EST Gender Identity Not on file Sexual Orientation Not on file Obstetrics History Last Filed Vital Signs Vital Sign Reading Time Taken Comments Blood Pressure 115/79 08/29/2024 1:59 PM EDT Pulse 69 08/29/2024 1:59 PM EDT Temperature 36.1 C (96.9 F) 04/29/2024 2:27 PM EST Respiratory Rate - - Oxygen Saturation 93% 08/29/2024 1:59 PM EDT Inhaled Oxygen Concentration - - Weight 95.3 kg (210 lb) 08/29/2024 1:59 PM EDT Height 165.1 cm (5' 5 ) 08/29/2024 1:59 PM EDT Body Mass Index 34.95 08/29/2024 1:59 PM EDT Plan of Treatment Health Maintenance Due Date Last Done Comments Breast Cancer Screening 1954 Colorectal Cancer Screening: Colonoscopy 1954 DTaP,Tdap,and Td Vaccines (1 - Tdap) 1973 Hepatitis A Vaccines (1 of 2 - Risk 2-dose series) 1973 Pneumococcal Vaccine: 50+ Ye ars (1 of 2 - PCV) 1973 Zoster Vaccines (1 of 2) 2004 Falls Risk Assessment 01/27/2024 Hepatitis C Screening 01/27/2024 Osteoporosis Screening (Bone Density Screening) 01/27/2024 Social Influencers of Health Screening 01/27/2024 Depression Screening 04/13/2024 COVID-19 Vaccine (1 - 2024-2 6 season) 2024 Influenza Vaccine (#1) 2024 RSV Immunization Adult Patie nts (1 - 1-dose 75+ series) 2029 HIB Vaccines Aged Out No longer eligi ble based on patient's age to complete this topic HPV Vaccines Aged Out No longer eligi ble based on patient's age to complete this topic Hepatitis B Vaccines Aged Out No long er eligible based on patient's age to complete this topic IPV Vaccines Aged Out No longer eligi ble based on patient's age to complete this topic MMR Vaccines Aged Out No longer eligi ble based on patient's age to complete this topic Meningococcal ACWY Vaccine Aged Out N o longer eligible based on patient's age to complete this topic Meningococcal B Vaccine Aged Out No l onger eligible based on patient's age to complete this topic RSV Immunization Patients Un derick 20 months Aged Out No longer eligible b ased on patient's age to complete this topic Varicella Vaccines Aged Out No longer eligible based on patient's age to complete this topic Insurance BLUE CROSS - [employer] Care Teams Paper Feeder Relationship Specialty Start Date End Date Aicha Romero MD [address] [place] [address] PCP - General Internal Medicine 03/18/24
--- OUTSIDE RECORDS SUMMARY | 2025-03-15 13:21 | XMS_ITS | Clinical Summary ---
Author Organization [facility] Address [address] [place], [place] [id number] Phone Care Team Providers Care Complaint Inspector Name Role Phone Aicha Romero MD Primary Care Provider Allergies Active Allergy Reactions Criticality Noted Date Comments Codeine Rash 01/07/2004 Iodinated Contrast Media Anaphylaxis 01/07/2004 Active Problems Problem Noted Date Diagnosed Date Osteoarthritis of hip 11/03/2013 Overview (06/03/2014): Osteoarthritis of hip Social History Tobacco Use Types Packs/Day Years Used Date Smoking Tobacco: Never Assessed Comments Unknown Sex and Gender Information Value Date Recorded Sex Assigned at Not on file Legal Sex Female 5:28 PM EST Gender Identity Not on file Sexual Orientation Not on file Plan of Treatment Not on file Medical Devices Not on file Insurance [facility] [employer] [facility] [employer] [facility] [employer] [facility] [employer] [facility] [employer] [facility] [employer] [facility] [employer] [facility] [place] [address] [place] [address] [employer] Care Teams Complaint Inspector Relationship Specialty Start Date End Date Aicha Romero MD [address] [place] [address] PCP - General 10/11/13 Additional Source Comments The information contained in this document represents components of the legal health record. It is not the complete legal health record.[facility]
--- OUTSIDE RECORDS SUMMARY | 2025-03-15 13:21 | XMS_ITS | Clinical Summary ---
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
== END 2025-03-15 11:55 | disposition home or self-care (01) ==
LOC: HO.HMCC 11:10
PROVIDERS: PCP Internal Medicine; Visit Provider Internal Medicine
DX: Z00.00 Encounter for general adult medical examination without abnormal findings (principal); E78.5 Hyperlipidemia, unspecified; M54.16 Radiculopathy, lumbar region